=== PATIENT | female | born 1990 | race Caucasian/White ===

== ENCOUNTER 2018-01-16 11:57 | Day surgery (SDC) | payer OTHER ==
[2018-01-15 16:48] VITALS: BMI 19.9
[2018-01-16] MEDS ORDERED: BUPIVACAINE HCL/PF 0.5% (5MG/ML) 10 ML VIAL ONE (13:07)
[2018-01-16] MEDS ORDERED: LIDOCAINE HCL 1%, 10 MG/ML (20ML VIAL) ONE (13:07)
[2018-01-16] MEDS ORDERED: PROPOFOL 20 ML ONE (13:15)
[2018-01-16] MEDS ORDERED: MIDAZOLAM HCL 2 MG/2 ML SINGLE DOSE VIAL ONE ×2 (13:15)
[2018-01-16] MEDS ORDERED: ONDANSETRON 4 MG/2 ML VIAL ONE ×2 (13:52→14:18)
[2018-01-16] MEDS ORDERED: DEXAMETHASONE SOD PHOSPHATE 4 MG/1 ML VIAL ONE (13:52)
[2018-01-16] MEDS ORDERED: oxyCODONE HCL 5 MG TABLET PO PRN (14:07)
[2018-01-16] MEDS ORDERED: ONDANSETRON 4 MG/2 ML VIAL IVPUSH PRN (14:07)
[2018-01-16] MEDS ORDERED: LACTATED RINGERS SOLUTION 1,000 ML IV SCH (14:15)
[2018-01-16] MEDS ORDERED: ONDANSETRON 4 MG/2 ML VIAL IVPUSH ONE (14:22)
[2018-01-16 15:12] VITALS: TEMP 97.9
[2018-01-16] MEDS ORDERED: oxyCODONE HCL 5 MG TABLET ONE (15:14)
[2018-01-16 15:33] VITALS: BP 110/65; PULSE 72
--- NOTE | 2018-01-16 23:57 | OP ---
DATE OF OPERATION: DATE OF DICTATION: 01/16/2018 PREOPERATIVE DIAGNOSIS: Pre-prolapsing hemorrhoid 3, 6, and 9 o'clock position. POSTOPERATIVE DIAGNOSIS: Pre-prolapsing hemorrhoid 3, 6, and 9 o'clock position. PROCEDURE: Anoscopy and hemorrhoidectomy of the pre-prolapsing hemorrhoid and repair. SURGEON: Sung Dennison M.D. ANESTHESIA: Local sedation. DESCRIPTION OF PROCEDURE: Patient was placed in the prone position, and the gluteal muscles were with the tape, and local with Marcaine was injected. After the rectal anus was prepped and draped at 3, 6 and 9 o'clock position hemorrhoids which were prolapsing were grasped with Allis clamp and submucosal dissection was done up to the root, and it was then sutured with 3-0 chromic was excised and the 2 parts of the mucosa were closed together with 3-0 chromic, and care was taken to avoid any packing of the skin outside the anus, and once it was completed good hemostasis, dressing was applied, patient went to the recovery room. Tay [id number]
--- NOTE | 2018-01-25 13:32 | PATH ---
Surgical Pathology Report Patient Name: CLAUDIA RICHARDS Med. Rec. #: [id number] /Age/Gender: 1990 (Age: 27) / F Account: [id number] Location: [facility] Taken: 01/16/2018 Received: 01/16/2018 Reported: 01/25/2018 Physicians: Sung Dennison M.D. Specimen(s) Received HEMORRHOIDS Clinical History Prolapsing hemorrhoids Final Diagnosis HEMORRHOIDS, HEMORRHOIDECTOMY: HEMORRHOIDS Electronically Signed Viri Dietrich M.D. Gross Description Received in formalin labeled "hemorrhoids," are 3 rivero portions of skin and soft tissue ranging from 1.0 x 0.6 x 0.4 cm to 2.3 x 1.4 x 0.7 cm, consistent with hemorrhoids. Diagnostic Technologist sections are submitted in one cassette. /01/18/201801/18/2018
== END 2018-01-16 16:05 | disposition home or self-care (01) ==
LOC: FASU 11:57
PROVIDERS: ATTEND Surgery Vascular Surgery
PROC: 06BY0ZC Excision of Hemorrhoidal Plexus, Open Approach (ICD-10-PCS; principal; 2018-01-16 13:32)
DX: K64.8 Other hemorrhoids (principal)
CPT/HCPCS: 84703; 88304-TC; 94760

== ENCOUNTER 2018-01-17 00:33 | Emergency (ER) | payer OTHER ==
[2018-01-17 00:40] VITALS: BP 118/70; PULSE 88; TEMP 98.5; BMI 18.4
[2018-01-17] MEDS ORDERED: KETOROLAC TROMETHAMINE 15 MG/ML VIAL IVPUSH ONE (00:46)
[2018-01-17] MEDS ORDERED: KETOROLAC TROMETHAMINE 15 MG/ML VIAL ONE (00:47)
--- NOTE | 2018-01-17 01:06 | PDOC ---
History of Present Illness - General Chief Complaint: Pain Stated Complaint: PAIN S/P HEMORRHOIDECTOMY Time Seen by Provider: 01/17/18 00:43 History Source: Patient - History of Present Illness Initial Comments: 01/17/18 04:23 post op pain Timing/Duration: 1-3 hours Severity: moderate Modifying Factors: worse with: cold therapy Associated Symptoms: denies: fever/chills Past History - Past Medical History Allergies/Adverse Reactions: Allergies Allergy/AdvReac Type Severity Reaction Status Date / Time No Known Allergies Allergy Verified 01/16/18 12:13 Home Medications: Ambulatory Orders Docusate Sodium [Colace] 100 mg PO TID #40 capsule 01/17/18 Anemia: No Asthma: No Cancer: No Cardiac Disorders: No CVA: No COPD: No CHF: No Dementia: No Diabetes: No GI Disorders: No Disorders: No HTN: No Hypercholesterolemia: No Liver Disease: No Seizures: No Thyroid Disease: No - Surgical History Abdominal Surgery: No Appendectomy: No Cardiac Surgery: No Cholecystectomy: No Lung Surgery: No Neurologic Surgery: No Orthopedic Surgery: No - Suicide/Smoking/Psychosocial Hx Smoking History: Never smoked Have you smoked in the past 12 months: No Number of Cigarettes Smoked Daily: 0 Information on smoking cessation initiated: No Hx Alcohol Use: No Drug/Substance Use Hx: No Substance Use Type: None Hx Substance Use Treatment: No Review of Systems - Review of Systems All Other Systems: Reviewed and Negative *Physical Exam - Vital Signs Last Vital Signs Temp Pulse Resp BP Pulse Ox 98.5 F 88 14 118/70 100 01/17/18 00:36 01/17/18 00:36 01/17/18 00:36 01/17/18 00:36 01/17/18 00:36 - Physical Exam General Appearance: Yes: Nourished, Appropriately Dressed HEENT: positive: Normal Voice Neck: negative: Tender Respiratory/Chest: positive: Lungs Clear Cardiovascular: positive: Regular Rhythm Gastrointestinal/Abdominal: negative: Normal Bowel Sounds, Tender Rectal Exam: positive: other (well appearing surigcal site; no infection, no dc) Musculoskeletal: positive: Normal Inspection, Vertebral Tenderness Integumentary: positive: Normal Color Neurologic: positive: Alert Medical Decision Making - Medical Decision Making 01/17/18 04:24 post-op pain analgesia with IV fentanyl and ketorolac 01/17/18 04:25 *DC/Admit/Observation/Transfer Diagnosis at time of Disposition: Post-operative pain - Discharge Dispostion Disposition: HOME Condition at time of disposition: Good - Prescriptions Prescriptions: Docusate Sodium [Colace] 100 mg PO TID #40 capsule - Referrals - Patient Instructions Additional Instructions: Take ibuprofen 800mg every 8 hours as a first-line pain medication. Take the oxycodone you were prescribed only if you have pain after taking the ibuprofen - Post Discharge Activity
== END 2018-01-17 02:07 | disposition home or self-care (01) ==
LOC: FER 00:33
PROC: 3E033NZ Introduction of Analgesics, Hypnotics, Sedatives into Peripheral Vein, Percutaneous Approach (ICD-10-PCS; principal; 2018-01-17)
PROC: 3E0333Z Introduction of Anti-inflammatory into Peripheral Vein, Percutaneous Approach (ICD-10-PCS; 2018-01-17)
DX: G89.18 Other acute postprocedural pain (principal)
CPT/HCPCS: 99281-25

== ENCOUNTER 2018-01-18 05:57 | Emergency (ER) | payer OTHER ==
--- NOTE | 2018-01-18 06:02 | PDOC ---
History of Present Illness - General Chief Complaint: Pain Stated Complaint: PAIN S/P SX - History of Present Illness Initial Comments: 01/18/18 06:35 This 27-year-old woman presents 2 days s/p hemorrhoidectomy. Patient was seen on the night of surgery with pain; she was given analgesics. She presented overnight last night but left prior to being seen. This morning, she is here with persistent perianal pain with sensation that she needs to have a bowel movement. She states that she has been following instructions taking sitz baths at least 3 times a day, eating a high-fiber diet and drinking water although when asked specifically it seems that she is mainly drinking smoothies and having a few fruits and vegetables. She is taking 800mg of ibuprofen 3 times a day but most recent dose of ibuprofen was approximately 10:30 PM last night. The patient has not had a bowel movement yet; yesterday, she passed small amount of liquid blood per rectum only. Past History - Past Medical History Allergies/Adverse Reactions: Allergies Allergy/AdvReac Type Severity Reaction Status Date / Time No Known Allergies Allergy Verified 01/16/18 12:13 Home Medications: Ambulatory Orders Docusate Sodium [Colace] 100 mg PO TID #40 capsule 01/17/18 Oxycodone HCl/Acetaminophen [Percocet 10-325 mg Tablet] 1 each PO Q4HWA PRN 11/27 Anemia: No Asthma: No Cancer: No Cardiac Disorders: No CVA: No COPD: No CHF: No Dementia: No Diabetes: No GI Disorders: No Disorders: No HTN: No Hypercholesterolemia: No Liver Disease: No Seizures: No Thyroid Disease: No - Surgical History Abdominal Surgery: No Appendectomy: No Cardiac Surgery: No Cholecystectomy: No Lung Surgery: No Neurologic Surgery: No Orthopedic Surgery: No - Suicide/Smoking/Psychosocial Hx Smoking History: Never smoked Have you smoked in the past 12 months: No Number of Cigarettes Smoked Daily: 0 Hx Alcohol Use: No Drug/Substance Use Hx: No Substance Use Type: None Hx Substance Use Treatment: No Review of Systems - Review of Systems Able to Perform ROS?: Yes Comments:: 12 point review of systems is negative except for what is noted in the history of present illness *Physical Exam - Physical Exam Comments: GENERAL: Adult female, intermittently tearful, in mild distress secondary to perianal pain ENT: Ears normal, nares patent, oropharynx clear without exudates. Moist mucous membranes. ABDOMEN:.normal bowel sounds No guarding,tenderness or rebound.No masses No distention. Rectal- no significant edema/masses/bleeding noted EXTREMITIES: Normal range of motion, no edema. No clubbing or cyanosis. No erythema, or tenderness. NEUROLOGICAL: Cranial nerves II through XII grossly intact. Normal speech. No focal neurological deficits. MUSCULOSKELETAL: Back non-tender to palpation, no CVA tenderness SKIN: Warm, Dry, normal turgor, no rashes or lesions noted. Medical Decision Making - Medical Decision Making 01/18/18 06:42 Dr. Dennison contacted and case discussed with him. Any oral laxative at this point would be acceptable so that patient can move her bowels and feel more comfortable.. Enema would be contraindicated secondary to the local pain. The patient can be seen in the office either today or on January 21 Patient agrees to Toradol 60 mg IM now and magnesium citrate oral laxative. *DC/Admit/Observation/Transfer Diagnosis at time of Disposition: Post-operative pain - Discharge Dispostion Condition at time of disposition: Stable - Referrals Referrals: Becky Clay [Primary Care Provider] - Sung Dennison MD [Staff Physician] - - Patient Instructions Printed Discharge Instructions: DI for Hemorrhoidectomy Additional Instructions: Drink bottle of magnesium citrate as soon as you get home Continue drinking plenty of water (at least 64 ounces daily) Continue high fiber diet with plenty of fruits and vegetables Continue Colace 3 times a day and sitz baths as least 3 times a day Ibuprofen for pain as previously; Percocet only if pain is extremely severe since this will make you constipated Follow-up with Dr. Dennison in office either today or on January 21 - Post Discharge Activity
[2018-01-18 06:09] VITALS: BP 116/59; PULSE 85; TEMP 98.1
[2018-01-18 06:10] VITALS: BMI 20.6
[2018-01-18] MEDS ORDERED: KETOROLAC TROMETHAMINE 60 MG/2 ML VIAL IM ONE (06:30)
[2018-01-18] MEDS ORDERED: MAGNESIUM CITRATE 300 ML BOTTLE PO ONE (06:31)
[2018-01-18] MEDS ORDERED: KETOROLAC TROMETHAMINE 60 MG/2 ML VIAL ONE (06:31)
== END 2018-01-18 06:45 | disposition home or self-care (01) ==
LOC: FER 05:57
PROC: 3E0233Z Introduction of Anti-inflammatory into Muscle, Percutaneous Approach (ICD-10-PCS; principal; 2018-01-18)
DX: G89.18 Other acute postprocedural pain (principal)
CPT/HCPCS: 99282-25

== ENCOUNTER 2018-01-19 00:54 | Emergency (ER) | payer OTHER ==
[2018-01-19] MEDS ORDERED: HYDROmorphone HCL CARPU-JECT 1 MG/1 ML DISP.SYRIN IM ONE (01:03)
--- NOTE | 2018-01-19 01:08 | PDOC ---
History of Present Illness - General Chief Complaint: Pain, Acute Stated Complaint: SX PAIN Time Seen by Provider: 01/19/18 00:55 - History of Present Illness Initial Comments: 01/19/18 01:28 This 27-year-old woman, s/p hemorrhoidectomy on 01/16/18 presents to this ER for the third time postoperatively with persistent perianal pain. She was seen earlier today (discharged at 6:45 AM) with pain and constipation. Patient was given Toradol 60 mg IM and prescribed magnesium Citrate solution to be taken as a cathartic. Dr. Dennison, who was the operating surgeon, was consulted regarding the patient's postoperative pain prior to patient's discharge. Throughout the day, patient states that she was able to have a bowel movement after eating plenty of fruit and drinking water (patient states that the cathartic was vomited quickly after consumption). She states that she began to have perianal pain again after taking a hot bath this evening. She has attempted to decrease the pain by applying ice to the perianal area as well as taking warm sitz baths. She also has been taking her Percocet and naproxen regularly (last dose at 11:45 PM). She states that she has talked to her surgeon by phone today regarding her persistent pain. Past History - Past Medical History Allergies/Adverse Reactions: Allergies Allergy/AdvReac Type Severity Reaction Status Date / Time No Known Allergies Allergy Verified 01/16/18 12:13 Home Medications: Ambulatory Orders Docusate Sodium [Colace] 100 mg PO TID #40 capsule 01/17/18 Oxycodone HCl/Acetaminophen [Percocet 10-325 mg Tablet] 1 each PO Q4HWA PRN 11/27 Anemia: No Asthma: No Cancer: No Cardiac Disorders: No CVA: No COPD: No CHF: No Dementia: No Diabetes: No GI Disorders: No Disorders: No HTN: No Hypercholesterolemia: No Liver Disease: No Seizures: No Thyroid Disease: No - Surgical History Abdominal Surgery: No Appendectomy: No Cardiac Surgery: No Cholecystectomy: No Lung Surgery: No Neurologic Surgery: No Orthopedic Surgery: No - Suicide/Smoking/Psychosocial Hx Smoking History: Never smoked Have you smoked in the past 12 months: No Number of Cigarettes Smoked Daily: 0 Hx Alcohol Use: No Drug/Substance Use Hx: No Substance Use Type: None Hx Substance Use Treatment: No Review of Systems - Review of Systems Able to Perform ROS?: Yes Comments:: 12 point review of systems is negative except for what is noted in the history of present illness *Physical Exam - Physical Exam Comments: GENERAL: Adult female, anxious and in moderate distress secondary to her perianal pain ABDOMEN:.normal bowel sounds No guarding,tenderness or rebound.No masses No distention. RECTAL-mild edema/marked tenderness of external hemorrhoidal tags; no fluctuance /discharge or bleeding evident -EXTREMITIES: Normal range of motion, no edema. No clubbing or cyanosis. No erythema, or tenderness. NEUROLOGICAL: Cranial nerves II through XII grossly intact. Normal speech. No focal neurological deficits. MUSCULOSKELETAL: Back non-tender to palpation, no CVA tenderness SKIN: Warm, Dry, normal turgor, no rashes or lesions noted. Progress Note - Progress Note Progress Note: This 27-year-old woman 2 days post hemorrhoidectomy has presented to ER several times since surgery for postoperative pain. Tonight, she has persistent pain after taking a hot bath despite subsequent doses of analgesia (both anti- inflammatory and narcotic) and ice application/sitz baths. Patient has been advised regarding any applications of excessive warmth to the area (such as taking a hot bath): These may cause edema and subsequent increase in pain around the area that was operated on. Also, even though she has severe pain she has been warned again about excessive use of narcotics and subsequent constipation which would further complicate her postoperative course. Patient states that she has been unable to sleep secondary to to the pain for the last 2 nights and is desperate for rest so that she can "take care of (her) kids". Because of this, we will administer one dose of parenteral narcotic( Dilaudid 1 mg IM). It was carefully explained to her that any further doses of parenteral narcotics would be counterproductive and likely cause constipation. Patient had dose of IM Dilaudid 1 mg administered without adverse effects and will be discharged. Patient will follow-up with in the office on Sunday, January 21 *DC/Admit/Observation/Transfer Diagnosis at time of Disposition: Post-operative pain - Discharge Dispostion Disposition: HOME Condition at time of disposition: Stable - Referrals - Patient Instructions Additional Instructions: Continue drinking plenty of water Continue high fiber diet Continue lukewarm sitz baths/cool applications to perianal area as needed Take medications as prescribed; try to limit narcotic as much as possible as discussed Follow-up with on Sunday, January 21 as scheduled - Post Discharge Activity
[2018-01-19 01:09] VITALS: BP 98/48; PULSE 76; TEMP 98.4; BMI 20.6
[2018-01-19] MEDS ORDERED: HYDROmorphone HCL CARPU-JECT 1 MG/1 ML DISP.SYRIN ONE (01:10)
== END 2018-01-19 01:16 | disposition home or self-care (01) ==
LOC: FER 00:54
PROC: 3E023NZ Introduction of Analgesics, Hypnotics, Sedatives into Muscle, Percutaneous Approach (ICD-10-PCS; principal; 2018-01-19)
DX: G89.18 Other acute postprocedural pain (principal)
CPT/HCPCS: 99282-25